=== PATIENT | male | born 1995 | race Caucasian/White ===

== ENCOUNTER 2017-02-09 02:50 | Emergency (ER) | payer OTHER ==
[~2017-02-09] VITALS: Ht 175.3 cm; Wt 67.0 kg
[2017-02-09] VITALS (7 sets, daily range): BP systolic 119–146; BP diastolic 56–65; PULSE 82–93; RESP 16–22; TEMP 98.7; O2SAT 97–99
[2017-02-09] MEDS ORDERED: SODIUM CHLOR 0.9% 1000 ML INJ 1,000 ML IV SCH (03:03)
[2017-02-09] MEDS ORDERED: DIPHTH/TETANUS/ACEL PERTUSSIS (BOOSTER) 0.5 ML VIAL/PFS IM ONE (03:15)
[2017-02-09] MEDS ORDERED: ONDANSETRON HCL 4 MG/2 ML VIAL IVP ONE (03:15)
[2017-02-09] MEDS ORDERED: SODIUM CHLORIDE 0.9% FLUSH 10 ML FLUSH IVF PRN (03:15)
[2017-02-09] MEDS ORDERED: ceFAZolin 2 GM PREMIX 50 ML IV ONE (03:15)
[2017-02-09 03:22] LABS: I-STAT POTASSIUM 3.9 MMOL/L (3.5-4.9); I-STAT SODIUM 140 MMOL/L (138-146)
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
[2017-02-09 03:39] LABS: AUTOMATED NEUTROPHIL # 5.7 TH/MM3 (1.8-7.7); BASOPHIL % 0.2 % (0.0-2.0); EOSINOPHIL % 0.6 % (0.0-4.0); HEMATOCRIT 42.4 % (39.0-51.0); HEMO FLAGS DIFF FINAL; LYMPH % 14.9 % (9.0-44.0); LYMPHOCYTE # 1.2 TH/MM3 (1.0-4.8); MEAN CELL VOLUME 91.2 FL (80.0-100.0); MEAN CORPUSCULAR HEMOGLOBIN 30.1 PG (27.0-34.0); MONO % 10.9 % (0.0-8.0); NEUT % 73.4 % (16.0-70.0); PLATELET COUNT 159 TH/MM3 (150-450); RED BLOOD COUNT 4.64 MIL/MM3 (4.50-5.90); RED CELL DISTRIBUTION WIDTH 13.3 % (11.6-17.2); WHITE BLOOD COUNT 7.7 TH/MM3 (4.0-11.0)
[2017-02-09 03:40] LABS: ALT (GPT) 41 U/L (12-78); AST (GOT) 38 U/L (15-37)
[2017-02-09 03:43] LABS: ALKALINE PHOSPHATASE 102 U/L (45-117); CREATINE KINASE 335 U/L (39-308); INDIRECT BILIRUBIN 0.6 MG/DL (0.0-0.8); TOTAL BILIRUBIN ADULT 0.7 MG/DL (0.2-1.0)
[2017-02-09 03:45] LABS: APTT (PATIENT) 24.8 SEC (24.3-30.1); PROTHROMBIN TIME - PATIENT 11.5 SEC (9.8-11.6)
[2017-02-09 03:57] LABS: CKMB 1.4 NG/ML (0.5-3.6)
[2017-02-09 03:59] LABS: AMPHETAMINE, URINE NEG (NEG); BARBITURATES, URINE NEG (NEG); COCAINE, URINE NEG (NEG)
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
[2017-02-09] MEDS ORDERED: IOHEXOL 350 MG/ML 10 ML VIAL (for RAD DIAG) IV ONE (04:33)
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
[2017-02-09] MEDS ORDERED: IBUP-232 PO (05:57)
[2017-02-09] MEDS ORDERED: HYDR-3533 PO (05:57)
[2017-02-09] MEDS ORDERED: CYCL5TAB PO (05:57)
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
[2017-02-09] MEDS ORDERED: ACETAMINOPHEN/HYDROcodone 325 MG/5 MG TAB PO ONE (08:15)
--- NOTE | 2017-02-09 09:11 | EKG ---
Date Performed: 02/09/2017 Time Performed: 02:59:01 PTAGE: 21 years EKG: Sinus rhythm BORDERLINE RIGHT AXIS DEVIATION ABNORMAL ECG NO PREVIOUS TRACING DOCTOR: Julio Cesar Ortega Interpretating Date/Time 02/09/2017 09:10:10
== END 2017-02-09 09:31 | disposition home or self-care (01) ==
LOC: NEPE 02:50
DX: S22.41XA Multiple fractures of ribs, right side, initial encounter for closed fracture (principal); S42.294A Other nondisplaced fracture of upper end of right humerus, initial encounter for closed fracture; R94.31 Abnormal electrocardiogram [ECG] [EKG]; Z23 Encounter for immunization; Z87.19 Personal history of other diseases of the digestive system; Z86.69 Personal history of other diseases of the nervous system and sense organs; V87.7XXA Person injured in collision between other specified motor vehicles (traffic), initial encounter
CPT/HCPCS: 70450; 71010; 71260; 72125; 72128; 72131; 72170; 73030; 74177; 80076; 80307; 82435; 82550; 82552; 82565; 82947; 83690; 84132; 84295; 84484; 84520; 85025; 85384; 85610; 85730; 86850; 86900; 86901; 86920; 90471; 90715; 93005; 96360; 96365; 96375; 99285; J0690; J2405; J7030; Q9967